=== PATIENT | male | born 1975 | race Caucasian/White ===

== ENCOUNTER 2017-12-01 11:21 | Emergency (ER) | payer SELFPAY ==
[~2017-12-01] VITALS: Ht 172.7 cm; Wt 82.0 kg
[2017-12-01] MEDS ORDERED: LIDOCAINE HCL 1% 20ML VIAL (Pyxis) INJ MC ONE (14:00)
[2017-12-01] MEDS ORDERED: BACITRACIN ZINC OINT UDPKT TOP ONE (14:00)
[2017-12-01] MEDS ORDERED: LIDOCAINE HCL/PF 1% 10 MG/ML 5ML VIAL ONE (14:09)
[2017-12-01] MEDS ORDERED: LIDOCAINE HCL/PF 1% 10 MG/ML 5ML VIAL IJ NR (14:15)
[2017-12-01 15:06] VITALS: BP 117/69
== END 2017-12-01 15:11 | disposition home or self-care (01) ==
LOC: ER 11:21
DX: S01.112A Laceration without foreign body of left eyelid and periocular area, initial encounter (principal); S00.03XA Contusion of scalp, initial encounter; Y00.XXXA Assault by blunt object, initial encounter; Y93.89 Activity, other specified; Y92.488 Other paved roadways as the place of occurrence of the external cause
CPT/HCPCS: 70450; 70486; 99284; J3490; Z7610